=== PATIENT | male | born 1955 | race Caucasian/White ===

== ENCOUNTER → 2018-04-03 | Outpatient (CLI) | payer OTHER ==
[~2018-04-03] MED LIST: ATOR10TA9 PO; LOSA50TA7 PO; MELO15TA24 PO; MULT-257 PO; PYRI50CA PO; TRAM50TA2 PO; [UNRECOGNIZED DRUG - OTHER] PO
== END | disposition home or self-care (01) ==
LOC: CFH 15:47
PROVIDERS: ATTEND Orthopaedic Surgery
DX: S43.401A Unspecified sprain of right shoulder joint, initial encounter (principal); M19.011 Primary osteoarthritis, right shoulder; X58.XXXA Exposure to other specified factors, initial encounter; Y93.89 Activity, other specified; Y92.89 Other specified places as the place of occurrence of the external cause; Y99.8 Other external cause status

== ENCOUNTER 2018-04-04 11:10 | Outpatient (CLI) | payer OTHER ==
[~2018-04-04 11:10] MED LIST changes: -ATOR10TA9 PO; -LOSA50TA7 PO
[2018-04-04] MEDS ORDERED: ATOR10TA9 PO (11:50)
[2018-04-04] MEDS ORDERED: LOSA50TA14 PO (11:50)
[2018-04-04 13:52] LABS: ALANINE AMINOTRANSFERASE 35 U/L (12-78); ALBUMIN 4.2 g/dL (3.4-5.0); ANION GAP 5 mmol/L (5-15); CALCIUM 8.9 mg/dL (8.5-10.1); CHLORIDE 108 mmol/L (98-107); CREATININE 0.99 mg/dL (0.7-1.3)
[2018-04-04 14:00] LABS: ALKALINE PHOSPHATASE 70 U/L (45-117); BILIRUBIN,TOTAL 1.1 mg/dL (0.2-1.0); TOTAL PROTEIN 7.2 g/dL (6.4-8.2)
== END 2018-04-04 23:59 | disposition home or self-care (01) ==
LOC: STAR 11:10
PROVIDERS: ATTEND Orthopaedic Surgery
DX: Z01.818 Encounter for other preprocedural examination (principal); M19.011 Primary osteoarthritis, right shoulder
CPT/HCPCS: 36415; 80053; 87081; 93005

== ENCOUNTER 2018-04-11 10:00 | Observation (INO) | payer OTHER ==
[~2018-04-11] VITALS: Ht 167.6 cm; Wt 76.3 kg
[~2018-04-11 10:00] MED LIST changes: +ATOR10TA9 PO; +CLINDAMYCIN 150 MG/ML, 6ML ONE; +LOSA50TA14 PO
[2018-04-11 10:26] VITALS: BP 133/83
[2018-04-11] MEDS ORDERED: LACTATED RINGERS 1,000 ML IV SCH (10:33)
[2018-04-11] MEDS ORDERED: MIDAZOLAM 1 MG/ML, 2ML ONE (10:58)
[2018-04-11] MEDS ORDERED: FENTANYL PF 250 MCG/5ML ONE (10:58)
[2018-04-11] MEDS ORDERED: GABAPENTIN 300 MG CAPSULE PO ONE (11:00)
[2018-04-11] MEDS ORDERED: ACETAMINOPHEN 500 MG TABLET PO ONE (11:00)
[2018-04-11] MEDS ORDERED: D5%-0.45% NACL 1,000 ML IV SCH (11:39)
[2018-04-11] MEDS ORDERED: KETOROLAC 30 MG/1 ML IV SCH (12:00)
[2018-04-11] MEDS ORDERED: ONDANSETRON 2MG/ML, 2ML IV PRN (12:00)
[2018-04-11] MEDS ORDERED: morphine SULFATE 10 MG/ML, 1ML IV PRN (12:00)
[2018-04-11] MEDS ORDERED: DIPHENHYDRAMINE 25 MG CAPSULE PO PRN (12:00)
[2018-04-11] MEDS ORDERED: BISACODYL 10 MG SUPP PR PRN (12:00)
[2018-04-11] MEDS ORDERED: ALBUTEROL SULFATE 2.5 MG/3 ML NPPB PRN (12:30)
[2018-04-11] MEDS ORDERED: OXYcodone 5 MG/5 ML ORAL.SOL UDC PO PRN (12:30)
[2018-04-11] MEDS ORDERED: PROMETHAZINE 25 MG/ML, 1ML IV PRN (12:30)
[2018-04-11] MEDS ORDERED: hydrALAzine 20 MG/ML, 1ML IV PRN (12:30)
[2018-04-11] MEDS ORDERED: HYDROmorphone 2 MG/ML, 1ML IVPush PRN (12:30)
[2018-04-11] MEDS ORDERED: HALOPERIDOL 5 MG/ML IV PRN (12:30)
[2018-04-11] MEDS ORDERED: FENTANYL PF 100 MCG/2ML IV PRN (12:30)
[2018-04-11] MEDS ORDERED: LABETALOL 5MG/ML, 20ML IV PRN (12:30)
[2018-04-11] MEDS ORDERED: FENTANYL PF 100 MCG/2ML ONE (13:54)
[2018-04-11] MEDS ORDERED: OXYcodone 5 MG/5 ML ORAL.SOL UDC ONE (13:55)
[2018-04-11] MEDS ORDERED: HYDROmorphone 2 MG/ML, 1ML ONE (13:55)
[2018-04-11] MEDS ORDERED: GLYCOPYRROLATE 0.2MG/1ML, 5ML ONE (14:21)
[2018-04-11] MEDS ORDERED: DEXAMETHASONE 4 MG/ML, 1ML ONE (14:21)
[2018-04-11] MEDS ORDERED: ONDANSETRON 2MG/ML, 2ML ONE (14:21)
[2018-04-11] MEDS ORDERED: NEOSTIGMINE 1 MG/ML, 10ML ONE (14:21)
[2018-04-11] MEDS ORDERED: PROPOFOL 10 MG/ML, 20ML ONE (14:21)
[2018-04-11] MEDS ORDERED: ROCURONIUM 10MG/ML,5ML ONE (14:21)
[2018-04-11] MEDS ORDERED: MEPERIDINE/PF 50 MG/ML ONE (14:54)
[2018-04-11] MEDS ORDERED: OXYcodone/APAP 5/325MG TABLET PO SCH (15:00)
[2018-04-11] MEDS ORDERED: CEFAZOLIN PMX 2GM/50ML 50 ML IVPB SCH (18:00)
[2018-04-11] MEDS ORDERED: TEMPLATE NON-FORMULARY MED. (Atorvastatin Calcium** 10 MG) PO SCH (21:00)
[2018-04-11] MEDS ORDERED: DOCUSATE 100 MG CAPSULE PO SCH (21:00)
[2018-04-12] MEDS ORDERED: LOSARTAN 50MG TABLET PO SCH (09:00)
[2018-04-12] MEDS ORDERED: MELOXICAM 15 MG TABLET PO SCH (09:00)
== END 2018-04-11 17:35 | disposition home or self-care (01) ==
LOC: INTOOBSV 10:00 → ORIP 10:00 → 4NOR 15:01
PROVIDERS: ADMIT Orthopaedic Surgery; ATTEND Orthopaedic Surgery
DX: M19.011 Primary osteoarthritis, right shoulder (principal); M65.9 Synovitis and tenosynovitis, unspecified; M75.20 Bicipital tendinitis, unspecified shoulder; Z23 Encounter for immunization
CPT/HCPCS: 23430; 23470; 90471; 90656; C1776; G0378; J1100; J1170; J2175; J2250; J2405; J2704; J2710; J3010; J3490; J7120; S0077